=== PATIENT | male | born 1950 ===

== ENCOUNTER → 2022-07-24 | Outpatient (CLI) | payer MEDICARE, OTHER ==
[~2022-07-24] VITALS: Ht 171.4 cm; Wt 71.5 kg
[~2022-07-24] MED LIST: AMLO-257 PO; ASPI-1444 PO; ATOR20TA86 PO; METO25XL PO
[2022-07-24 09:16] VITALS: BP 133/72
== END | disposition home or self-care (01) ==
LOC: SRCNTR 08:57
PROVIDERS: ATTEND Internal Medicine
DX: Z09 Encounter for follow-up examination after completed treatment for conditions other than malignant neoplasm (principal); I10 Essential (primary) hypertension; J84.9 Interstitial pulmonary disease, unspecified; Z87.891 Personal history of nicotine dependence
CPT/HCPCS: G0463; Z7500

== ENCOUNTER → 2022-11-27 | Outpatient (CLI) | payer MEDICARE, OTHER ==
[~2022-11-27] MED LIST changes: +ATOR20TA PO; -ATOR20TA86 PO
== END | disposition home or self-care (01) ==
LOC: SRCNTR 14:38
PROVIDERS: ATTEND Internal Medicine Pulmonary Disease
DX: J96.21 Acute and chronic respiratory failure with hypoxia (principal); B38.9 Coccidioidomycosis, unspecified; J84.10 Pulmonary fibrosis, unspecified; I10 Essential (primary) hypertension; E78.5 Hyperlipidemia, unspecified; I25.10 Atherosclerotic heart disease of native coronary artery without angina pectoris; Z95.5 Presence of coronary angioplasty implant and graft
CPT/HCPCS: G0463

== ENCOUNTER → 2023-02-25 | Outpatient (CLI) | payer MEDICARE, OTHER | END | disposition home or self-care (01) | LOC: SRCNTR 10:32 | PROVIDERS: ATTEND Internal Medicine Pulmonary Disease | DX: J96.20 Acute and chronic respiratory failure, unspecified whether with hypoxia or hypercapnia (principal); B38.9 Coccidioidomycosis, unspecified; I10 Essential (primary) hypertension; E78.5 Hyperlipidemia, unspecified; I25.10 Atherosclerotic heart disease of native coronary artery without angina pectoris; J84.10 Pulmonary fibrosis, unspecified; Z79.82 Long term (current) use of aspirin; Z79.899 Other long term (current) drug therapy | CPT/HCPCS: Q3014 ==

== ENCOUNTER → 2023-05-18 | Outpatient (CLI) | payer MEDICARE, OTHER ==
[~2023-05-18] VITALS: Ht 170.2 cm; Wt 59.5 kg
[~2023-05-18] MED LIST changes: +PRED10TA3 PO; +SULF-261 PO
[2023-05-18 12:37] VITALS: BP 149/91; PULSE 108; RESP 28; TEMP 98.8; O2SAT 97
== END | disposition home or self-care (01) ==
LOC: SRCNTR 12:04
PROVIDERS: ATTEND Internal Medicine Pulmonary Disease
DX: J96.21 Acute and chronic respiratory failure with hypoxia (principal); B38.9 Coccidioidomycosis, unspecified; J84.10 Pulmonary fibrosis, unspecified
CPT/HCPCS: G0463; Z7500

== ENCOUNTER → 2023-06-25 | Outpatient (CLI) | payer MEDICARE, OTHER ==
[~2023-06-25] MED LIST changes: +BACL10TA PO; +ITRA100C24 PO; +SENN-376 PO
[2023-06-25 11:03] VITALS: BP 146/89; PULSE 92; RESP 17; TEMP 97.9; O2SAT 96
== END | disposition home or self-care (01) ==
LOC: SRCNTR 10:38
PROVIDERS: ATTEND Internal Medicine Pulmonary Disease
DX: J96.21 Acute and chronic respiratory failure with hypoxia (principal); J84.10 Pulmonary fibrosis, unspecified; B38.9 Coccidioidomycosis, unspecified
CPT/HCPCS: G0463; Z7500

== ENCOUNTER → 2023-07-21 | Outpatient (CLI) | payer MEDICARE, OTHER ==
[~2023-07-21] MED LIST changes: -ASPI-1444 PO; -ATOR20TA PO
== END | disposition home or self-care (01) ==
LOC: SRCNTR 10:06
PROVIDERS: ATTEND Internal Medicine Pulmonary Disease
DX: J96.21 Acute and chronic respiratory failure with hypoxia (principal); B38.9 Coccidioidomycosis, unspecified; J84.10 Pulmonary fibrosis, unspecified; I10 Essential (primary) hypertension; I25.10 Atherosclerotic heart disease of native coronary artery without angina pectoris; E78.5 Hyperlipidemia, unspecified
CPT/HCPCS: Q3014

== ENCOUNTER → 2023-08-25 | Outpatient (CLI) | payer MEDICARE, OTHER | END | disposition home or self-care (01) | LOC: SRCNTR 10:24 | PROVIDERS: ATTEND Internal Medicine Pulmonary Disease | DX: J96.21 Acute and chronic respiratory failure with hypoxia (principal); B38.9 Coccidioidomycosis, unspecified; J84.10 Pulmonary fibrosis, unspecified; J84.9 Interstitial pulmonary disease, unspecified | CPT/HCPCS: Q3014 ==